=== PATIENT | male | born 1985 | race American Indian/Alaskan Native ===

== ENCOUNTER 2017-03-09 14:06 | Emergency (ER) | payer OTHER ==
[2017-03-09 14:50] VITALS: BP 124/86
[2017-03-09] MEDS ORDERED: THORAZINE PO ONE (20:54)
[2017-03-09] MEDS ORDERED: MOTRIN PO ONE (20:55)
[2017-03-09] MEDS ORDERED: TYLENOL PO ONE (20:55)
--- NOTE | 2017-03-09 21:35 | Emergency Department Report ---
ED General Adult HPI - General Chief complaint: Nausea/Vomiting/Diarrhea Stated complaint: N/V/D, HICCUPS Time Seen by Provider: 03/09/17 20:37 Source: patient Mode of arrival: Ambulatory Limitations: No Limitations - History of Present Illness Initial comments: Pt is a 31 y M no significant pmhx who presents with hiccups, nausea and vomiting. Pt states that he has some mild abdominal pain that is a 5/10 located in his abdomen. He states that his symptoms started 1 day ago. Nothing makes his symptoms better and nothing makes his symptoms worse. Pt denies having a headache or havign a fever. Pt also states that he hasn't been around any sick contacts. Severity scale (0 -10): 7 - Related Data Previous Rx's Medication Instructions Recorded Last Taken Type chlorproMAZINE [Thorazine] 25 mg PO Q6H PRN #20 tab 03/09/17 Unknown Rx Allergies Allergy/AdvReac Type Severity Reaction Status Date / Time No Known Allergies Allergy Verified 03/09/17 20:56 ED Review of Systems ROS: Stated complaint: N/V/D, HICCUPS Other details as noted in HPI Constitutional: denies: chills, fever Eyes: denies: eye pain, eye discharge, vision change ENT: denies: ear pain, throat pain Respiratory: denies: cough, shortness of breath, wheezing Cardiovascular: denies: chest pain, palpitations Endocrine: no symptoms reported Gastrointestinal: abdominal pain, nausea. denies: diarrhea Genitourinary: denies: urgency, dysuria Musculoskeletal: denies: back pain, joint swelling, arthralgia Skin: denies: rash, lesions Neurological: denies: headache, weakness, paresthesias Psychiatric: denies: anxiety, depression Hematological/Lymphatic: denies: easy bleeding, easy bruising ED Past Medical Hx - Past Medical History Hx Arthritis: Yes - Surgical History Past Surgical History?: No - Social History Smoking Status: Never Smoker Substance Use Type: Marijuana - Medications Home Medications: Home Medications Medication Instructions Recorded Confirmed Last Taken Type chlorproMAZINE [Thorazine] 25 mg PO Q6H PRN #20 tab 03/09/17 Unknown Rx ED Physical Exam - General Limitations: No Limitations General appearance: alert, in no apparent distress - Head Head exam: Present: atraumatic, normocephalic - Eye Eye exam: Present: normal appearance - ENT ENT exam: Present: mucous membranes moist - Neck Neck exam: Present: normal inspection - Respiratory Respiratory exam: Present: normal lung sounds bilaterally. Absent: respiratory distress - Cardiovascular Cardiovascular Exam: Present: regular rate, normal rhythm. Absent: systolic murmur, diastolic murmur, rubs, gallop - GI/Abdominal GI/Abdominal exam: Present: soft, normal bowel sounds - Rectal Rectal exam: Present: deferred - Extremities Exam Extremities exam: Present: normal inspection - Back Exam Back exam: Present: normal inspection - Neurological Exam Neurological exam: Present: alert, oriented X3 - Psychiatric Psychiatric exam: Present: normal affect, normal mood - Skin Skin exam: Present: warm, dry, intact, normal color. Absent: rash ED Course Vital Signs 03/09/17 14:45 Temperature 98.8 F Pulse Rate 74 Respiratory 18 Rate Blood Pressure 124/86 O2 Sat by Pulse 99 Oximetry ED Medical Decision Making - Medical Decision Making Cdx: Viral syndrome ddx: GERD, [place] virus I will give pt thorazine and will give pt supportive care. Discussed plan with patient patient agrees with plan and additional verbal discharge instructions were given. Critical care attestation.: If time is entered above; I have spent that time in minutes in the direct care of this critically ill patient, excluding procedure time. ED Disposition Clinical Impression: Viral syndrome, Hiccups Nausea & vomiting Qualifiers: Vomiting type: unspecified Vomiting Intractability: unspecified Qualified Code( s): R11.2 - Nausea with vomiting, unspecified Disposition: DC-01 TO HOME OR SELFCARE Is pt being admited?: No Does the pt Need Aspirin: No Condition: Stable Instructions: Gastroenteritis (ED) Prescriptions: chlorproMAZINE [Thorazine] 25 mg PO Q6H PRN #20 tab PRN Reason: Nausea Referrals: GUILHERME PENG MD [Staff Physician] - 3-5 Days Forms: Work/School Release Form(ED)
== END 2017-03-09 21:43 | disposition home or self-care (01) ==
LOC: EDBD 14:06 → ED 14:06
DX: R11.2 Nausea with vomiting, unspecified (principal); R06.6 Hiccough
CPT/HCPCS: 99282; Q0161

== ENCOUNTER 2017-10-16 16:11 | Emergency (ER) | payer SELFPAY ==
[2017-10-16 16:41] VITALS: BP 132/94
--- NOTE | 2017-10-16 18:43 | XRay Report ---
FINAL REPORT PROCEDURE: XR HAND 3+V LT TECHNIQUE: LEFT hand radiographs, AP, lateral, and oblique views. HISTORY: Hand injury. COMPARISON: No prior studies are available for comparison. FINDINGS: Fracture (s) and/or Dislocation(s): None . Alignment: Slight offset at the scapholunate interval on AP and oblique view. Joint space(s): Normal . Soft tissues: Normal . Bone mineralization: Normal . Foreign bodies: None . IMPRESSION: No radiographic evidence of displaced fracture. Slight offset at the scapholunate interval on AP and oblique views, likely positional. Consider further evaluation including wrist radiographs if there is continued clinical concern.
[2017-10-16] MEDS ORDERED: MOTRIN PO ONE (19:07)
--- NOTE | 2017-10-16 19:10 | Emergency Department Report ---
Upper Extremity - HPI Chief Complaint: Extremity Injury, Upper Stated Complaint: FINGERS SMASHED IN MACHINE Time Seen by Provider: 10/16/17 19:05 Upper Extremity: Left Hand Occurred When: Today (0845) Severity: severe Symptoms: Yes Pain with Movement, No Deformity, No Limited Range of Movement, No Numbness, No Weakness, No Swelling, No Bruising/Ecchymosis, No Laceration or Abrasion Other History: 32-year-old -[place] male presents to the emergency room complaint of left hand sustained injury from work. Patient reports it is left hand was crushed while at work approximately 0845 this morning. 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 Patient reports that he did take 2 Tylenol prior to arrival that was given to him by his job. Patient does have a past medical history of arthritis. He currently takes no medications on a daily basis he has no known drug allergies. ED Review of Systems ROS: Stated complaint: FINGERS SMASHED IN MACHINE Other details as noted in HPI Musculoskeletal: arthralgia (left hand fingers) ED Past Medical Hx - Past Medical History Hx Arthritis: Yes - Surgical History Past Surgical History?: No - Social History Smoking Status: Never Smoker Substance Use Type: None - Medications Home Medications: Home Medications Medication Instructions Recorded Confirmed Last Taken Type chlorproMAZINE [Thorazine] 25 mg PO Q6H PRN #20 tab 03/09/17 Unknown Rx Ibuprofen [Motrin 600 MG tab] 600 mg PO Q8H #30 tablet 10/16/17 Unknown Rx Upper Extremity Exam - Exam General: Vital signs noted. No distress. Alert and acting appropriately. Head and Torso: No HEENT Abnormality, No Neck Tenderness, No Chest/Lungs Abnormality, No Abdominal Tenderness, No Back Tenderness Forearm: No Forearm Tenderness, No Forearm Deformity, No Pain with Pronation, No Pain with Supination Wrist: Yes Normal ROM in Wrist, No Wrist Tenderness, No Wrist Deformity, No Snuffbox Tenderness, No Pain with Axial Thumb Compression Hand: Yes Hand Tenderness, Yes Digit Tenderness (third and fourth distal digits tenderness with mild ecchymosis/petechiae), No Hand Deformity, No Digit(s) Deformity CMS Exam: Yes Normal Distal Pulses, Yes Normal Capillary Refill, Yes Normal Distal Sensation, No Broken Skin ED Course Vital Signs 10/16/17 16:33 Temperature 98.3 F Pulse Rate 76 Respiratory 16 Rate Blood Pressure 132/94 O2 Sat by Pulse 98 Oximetry ED Medical Decision Making - Radiology Data Radiology results: report reviewed, image reviewed FINAL REPORT PROCEDURE: XR HAND 3+V LT TECHNIQUE: LEFT hand radiographs, AP, lateral, and oblique views. HISTORY: Hand injury. COMPARISON: No prior studies are available for comparison. FINDINGS: Fracture (s) and/or Dislocation(s): None . Alignment: Slight offset at the scapholunate interval on AP and oblique view. Joint space(s): Normal . Soft tissues: Normal . Bone mineralization: Normal . Foreign bodies: None . IMPRESSION: No radiographic evidence of displaced fracture. Slight offset at the scapholunate interval on AP and oblique views, likely positional. Consider further evaluation including wrist radiographs if there is continued clinical concern. Transcribed By: CATHRYN Dictated By: CHRISTIANO BUCKLEY MD Electronically Authenticated By: CHRISTIANO BUCKLEY MD Signed Date/Time: 10/16/171835 DD/ 35 - Medical Decision Making Patient has been evaluated by this provider in fast track. Patient has been ordered ibuprofen 600 mg for pain management. X-ray of hand shows there is no dislocation or fractures. Discussed the patient that x-rays are negative that he most likely has a contusion of his hand. This is treated by ibuprofen ice and then 24 hours he can put heat with range of motion. Critical care attestation.: If time is entered above; I have spent that time in minutes in the direct care of this critically ill patient, excluding procedure time. ED Disposition Clinical Impression: Contusion of hand including fingers Qualifiers: Encounter type: initial encounter Laterality: left Qualified Code(s): S60.222A - Contusion of left hand, initial encounter; S60.00XA - Contusion of unspecified finger without damage to nail, initial encounter Disposition: DC-01 TO HOME OR SELFCARE Is pt being admited?: No Does the pt Need Aspirin: No Condition: Stable Instructions: Hand Sprain (ED) Additional Instructions: Please take pain medication as prescribed. Please follow light duty restrictions for the next few days when returning back to work. If her symptoms persist or gets worse please follow-up with the orthopedist. Prescriptions: Ibuprofen [Motrin 600 MG tab] 600 mg PO Q8H #30 tablet Referrals: PRIMARY CARE, [Primary Care Provider] - 3-5 Days NICOLASA MAY MD [Staff Physician] - 3-5 Days [facility] [Provider Group] - 3-5 Days Forms: Work/School Release Form(ED)
== END 2017-10-16 19:20 | disposition home or self-care (01) ==
LOC: ED 16:11
DX: S60.222A Contusion of left hand, initial encounter (principal); S60.032A Contusion of left middle finger without damage to nail, initial encounter; S60.042A Contusion of left ring finger without damage to nail, initial encounter; M19.90 Unspecified osteoarthritis, unspecified site; X58.XXXA Exposure to other specified factors, initial encounter; Y93.89 Activity, other specified; Y99.0 Civilian activity done for income or pay; Y92.69 Other specified industrial and construction area as the place of occurrence of the external cause
CPT/HCPCS: 99283

== ENCOUNTER 2018-05-03 11:04 | Emergency (ER) | payer OTHER ==
[2018-05-03 11:21] VITALS: BP 137/86
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
--- NOTE | 2018-05-03 12:39 | XRay Report ---
RIGHT SHOULDER, 3 VIEWS: HISTORY: right shoulder pain. Normal bone mineralization. The right humeral head appears slightly low riding with respect to the glenoid of the scapula. This could be secondary to positioning of the patient, joint effusion or subluxation. There is no evidence for fracture, ligamentous injury or dislocation. The soft tissues are unremarkable. IMPRESSION: Slightly low riding right humeral head. Joint effusion? No acute osseous injury is identified.
[2018-05-03] MEDS ORDERED: IBUPROFEN PO ONE (12:53)
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
== END 2018-05-03 13:15 | disposition home or self-care (01) ==
LOC: ED 11:04
DX: R51 Headache (principal); M54.2 Cervicalgia; M25.519 Pain in unspecified shoulder; F12.10 Cannabis abuse, uncomplicated; V89.2XXA Person injured in unspecified motor-vehicle accident, traffic, initial encounter; Y93.89 Activity, other specified; Y92.89 Other specified places as the place of occurrence of the external cause; Y99.8 Other external cause status
CPT/HCPCS: 70450; 72125

== ENCOUNTER 2018-07-13 13:21 | Emergency (ER) | payer OTHER ==
[2018-07-13 15:27] VITALS: BP 142/96
--- NOTE | 2018-07-13 15:37 | Emergency Department Report ---
Chief Complaint: Neck Pain/Injury Stated Complaint: NECK PAIN/EXTREME PAIN Time Seen by Provider: 07/13/18 15:32 - HPI History of Present Illness: This is a 33 y.o. male that presents to the ER with neck pain since last Thursday. Patient states he had a syncopal episode injuring neck and occipital scalp. Patient states he went to [facility] and had CT of neck, head, and chest x- ray. They placed shyann and didn't tell him the neck step. He complains of continued pain with percocets and muscle relaxers. He denies worsening symptoms, numbness, tingling, swelling, paresthesia, or weakness. - Exam Vital Signs: Vital Signs 07/13/18 15:25 Temperature 98.2 F Pulse Rate 77 Respiratory 20 Rate Blood Pressure 142/96 O2 Sat by Pulse 100 Oximetry Physical Exam: GENERAL: The patient is well looking, in no acute distress. HEENT: Atraumatic and normocephalic. Pupils are equal, round, reactive to light, and accommodation. Extraocular movements are intact. There is no icterus, cyanosis, or pallor of the conjunctivae. Tympanic membranes normal bilaterally. Nasal turbinates are clear without exudates. Sinuses nontender to percussion. Posterior pharynx is normal. No exudates are noted. CHEST: Air entry is adequate bilaterally with no rhonchi, and crackles. HEART: Sounds 1 and 2 are heard and are normal. Regular rate and rhythm, no tachycardic, murmurs, gallops, or rubs. ABDOMEN: Soft and nontender. Bowel sounds are present and normal. There is no hepatosplenomegaly. SKIN: One staple to mid occipital scalp, no step-off, erythema, or swelling. Without rash. EXTREMITIES: Without edema, cyanosis, or clubbing. MSE screening note: Focused history and physical exam performed. Due to findings the following was ordered: ED Medical Decision Making - Medical Decision Making Patient was examined by this provider. Vitals are stable and in no acute distress. Patient went to [facility] last Thursday post syncopal episode. Had CT of head, neck, and chest x-ray with no acute findings. Diagnosed with muscle strain. Patient was started on Percocet and muscle relaxants. There is a staple to occipital scalp without erythema, swelling, or step-off. Patient was referred to PCP to follow up and never followed up. This is a non-emergent issue. A referral to PCP and Orthopedic Surgeon was given. Discharged home in stable condition. Discussed prevention options. F/U with PCP. ED Disposition for MSE Clinical Impression: Neck pain, Stapled skin wound Disposition: MED SCREENING EXAM-LEFT Is pt being admited?: No Does the pt Need Aspirin: No Condition: Stable Instructions: Muscle Strain (ED), Staple Care (ED) Additional Instructions: Have shyann removed in 5-7 days by primary care provider, urgent care, or in the emergency room. Return to ER if red, swollen, foul discharge, or fever. Follow up with a primary care physician and/or Orthopedic surgeon from the referrals below. Referrals: CECILIA COOPER MD [Primary Care Provider] - 3-5 Days NICOLASA MAY MD [Staff Physician] - 3-5 Days [facility] [Provider Group] - 3-5 Days [facility] [Provider Group] - 3-5 Days Time of Disposition: 15:54
== END 2018-07-13 16:03 | disposition left against medical advice (07) ==
LOC: ED 13:21
DX: S01.03XA Puncture wound without foreign body of scalp, initial encounter (principal); W19.XXXA Unspecified fall, initial encounter; Y93.89 Activity, other specified; Y92.89 Other specified places as the place of occurrence of the external cause; Y99.8 Other external cause status
CPT/HCPCS: 99282